=== PATIENT | female | born 1995 | race Caucasian/White ===

== ENCOUNTER 2016-11-09 11:08 | Emergency (ER) | payer OTHER ==
[~2016-11-09] VITALS: Ht 162.6 cm; Wt 69.9 kg
[~2016-11-09 11:08] MED LIST: ACET50TA PO; COLA100C3 PO; IBUP-1114 PO; OXYC1TAB23 PO; PRENTAB9 PO
[2016-11-09] MEDS ORDERED: AZITHROMYCIN 250 MG TAB PO ONE (14:30)
[2016-11-09] MEDS ORDERED: NAPROXEN 250 MG TAB PO ONE (14:30)
[2016-11-09] MEDS ORDERED: ACETAMINOPHEN 325 MG TAB PO ONE (14:30)
[2016-11-09] MEDS ORDERED: CLAR1TAB2 PO (14:34)
[2016-11-09] MEDS ORDERED: ZITHTAB PO (14:34)
[2016-11-09] MEDS ORDERED: NAPR500T PO (14:34)
[2016-11-09] MEDS ORDERED: MUCI600T34 PO (14:34)
[2016-11-09 14:52] VITALS: BP 155/92
== END 2016-11-09 14:54 | disposition home or self-care (01) ==
LOC: M ED 13:20
DX: R51 Headache (principal); J01.90 Acute sinusitis, unspecified